=== PATIENT | male | born 1970 | race Caucasian/White ===

== ENCOUNTER 2021-07-25 13:27 | Emergency (ER) | payer MEDICAID ==
[~2021-07-25] VITALS: Ht 182.9 cm; Wt 87.5 kg
[~2021-07-25 13:27] MED LIST: CARI250T; LOVA10TA2; [UNRECOGNIZED DRUG - OTHER]; [UNRECOGNIZED DRUG - OTHER]
[2021-07-25 14:03] VITALS: BP 130/77
[2021-07-25] MEDS ORDERED: KETOROLAC TROMETH 60MG/2ML VIAL IM ONE (14:15)
[2021-07-25] MEDS ORDERED: KETOROLAC TROMETH 60MG/2ML VIAL ONE (14:21)
[2021-07-25] MEDS ORDERED: INDO50CA82 PO (14:30)
[2021-07-25] MEDS ORDERED: COLC1CAP PO (14:30)
== END 2021-07-25 14:47 | disposition home or self-care (01) ==
LOC: ER 13:27
DX: S93.402A Sprain of unspecified ligament of left ankle, initial encounter (principal); M10.9 Gout, unspecified; I10 Essential (primary) hypertension; E03.9 Hypothyroidism, unspecified; E78.5 Hyperlipidemia, unspecified; Z79.899 Other long term (current) drug therapy; X58.XXXA Exposure to other specified factors, initial encounter; Y93.89 Activity, other specified; Y92.89 Other specified places as the place of occurrence of the external cause; Y99.8 Other external cause status
CPT/HCPCS: 73610; 73630; 96372; 99284; J1885